=== PATIENT | male | born 2000 | race Caucasian/White ===

== ENCOUNTER 2024-03-07 08:36 | Emergency (ER) | payer OTHER, SELFPAY ==
[2024-03-07 08:38] VITALS: BP 141/82; PULSE 71; RESP 16; TEMP 36.6; O2SAT 99; BMI 23.7
--- NOTE | 2024-03-07 08:55 | CT_ITS ---
STUDY: CT CHEST, ABDOMEN T PELVIS WITH CONTRAST REASON FOR EXAM: Male, 23 years old. Hit side on 2X4 urinating blood RADIATION DOSAGE (If Supplied By Facility): CTDIvol = ( 11.65 ) mGy, DLP = ( 870.34 ) mGycm TECHNIQUE: Transaxial imaging was performed following intravenous administration of IV 100mL [id number]-300. Multiplanar coronal and sagittal images were reformatted. Individualized dose optimization techniques were used for this CT. COMPARISON: No relevant priors. FINDINGS: CHEST The lungs are normal. There is no demonstrated pleural abnormality. Normal heart and pericardium. Normal mediastinum. Normal hilar regions. Normal unenhanced pulmonary arteries. Normal aorta arch and descending thoracic aorta. Normal osseous structures. There is no demonstrated abnormality of the visualized upper abdomen. ABDOMEN The visualized lung bases are unremarkable. The visualized portions of the heart are within normal limits. Normal liver. Normal gallbladder and extrahepatic biliary system. Normal spleen. Normal pancreas. Normal bilateral adrenal glands. Normal right kidney. There is evidence of a small subcapsular left perinephric hematoma. No evidence of renal laceration. Normal visualized stomach. Normal small intestine. Normal colon. The appendix is visualized and appears normal. Normal abdominal aorta. Normal inferior vena cava. Normal retroperitoneum. Normal abdominal wall. Normal osseous structures. PELVIS Normal urinary bladder. Normal visualized small intestine. Normal visualized colon. There is no pelvic fluid. There is no pelvic lymphadenopathy or mass lesion. Normal visualized pelvic arteries. Normal abdominal wall. Normal osseous structures. CT/CT Chest, Abd, Pel w/Contrast IMPRESSION: There is a small left subcapsular renal hematoma. No evidence of renal laceration. Electronically Signed: Kennedy Luna MD at 10:09 EDT ,
--- NOTE | 2024-03-07 09:03 | EDS_ITS ---
HPI History of Present Illness Chief Complaint: Trauma Narrative Narrative: Patient is a 23-year-old male with no known significant past medical history who states that this morning he fell into a hole hitting his left side on 2 x 4. He states that this happened around 7:30 AM and noted that when he went to urinate he urinated and blood which prompted him to come here further evaluation management. Patient states that he did not hit his head he did not pass out did not lose consciousness remembers entire event. He states that he has left rib pain. Rates pain a 7 out of 10. PFSH PFSH Allergy/AdvReac Type Severity Reaction Status Date / Time No Known Allergies Allergy Verified 03/07/24 08:53 Social History Smoking Status: Never smoker ROS ROS ED ROS Narrative Constitutional: Denies fevers, chills, headaches, lightness, dizziness Eyes: Denies change in vision double vision blurry vision Cardiovascular: Denies chest pain or palpitations Respiratory: Denies coughing wheezing shortness of breath Abdomen: Complains of left-sided abdominal pain as noted above denies nausea vomiting diarrhea : Complains of hematuria as noted above denies any painful urination Neurological: Denies numbness, weakness, tingling Musculoskeletal: Complains of left-sided rib pain as noted above Skin: Denies rashes or lesions EXAM Physical Exam Narrative Exam Narrative: General: Patient lying in bed rest comfortably did not appear to be in acute distress Head: Atraumatic, normocephalic Eyes ears, nose, throat: PERRL bilateral, EOMI bilateral, no conjunctival injection noted, no nasal septal hematomas noted bilaterally Neck: Soft, supple, trachea midline, no tenderness palpation midline cervical spine Cardiovascular: Regular rate and rhythm no murmurs gallops rubs noted Respiratory: Clear to auscultation bilaterally no rales rhonchi or wheezes noted Abdomen: Soft, nondistended, tender to palpation in the left lower and upper quadrants of his abdomen no rebound or guarding on exam Musculoskeletal: Patient has tenderness palpation over the left lower rib cage. No tenderness palpation of the midline of thoracolumbar spine no step-offs or deformities noted. All other bony prominences and joints taken through full range of motion no pain elicited Extremities: +5/5 strength noted in the bilateral lower extremities, radial pulses +2/4 in the bilateral per extremities Neurological: Patient following commands knew that he was at [facility] year is 2023 Skin: Warm, dry, tact Const Vital Signs: 03/07/24 08:38 03/07/24 08:47 03/07/24 09:37 Temperature 98 F Temperature Source Oral Pulse Rate 71 80 Respiratory Rate 16 17 Respiratory Effort Normal Respiratory Depth Normal Respiratory Pattern Normal Blood Pressure 141/82 H 127/80 H Blood Pressure Mean 101 95 Pulse Ox 99 98 Oxygen Delivery Method Room Air Room Air Room Air 03/07/24 10:00 03/07/24 11:00 Temperature Temperature Source Pulse Rate 77 77 Respiratory Rate 18 16 Respiratory Effort Respiratory Depth Respiratory Pattern Blood Pressure 124/82 H 131/74 H Blood Pressure Mean 96 93 Pulse Ox 98 96 Oxygen Delivery Method Room Air Room Air MDM MDM MDM Narrative Medical decision making narrative: Patient is a 23-year-old male who presented to the emerged [facility] with chief complaint of hematuria after falling and hitting his left side against a 2 x 4. Patient will have a workup performed here on the differential diagnose includes but not limited to splenic laceration, renal laceration, ureteral laceration, rib fractures, pneumothorax. Once workup is obtained reviewed he will be reevaluated. Patient states that he does not want a thing for pain at this point time. Bedside FAST exam was performed and there was some sediment noted in the bladder. No intra-abdominal free fluid noted. No pericardial effusion noted. Patient CBC reviewed and showed no evidence leukocytosis white blood count normal at 10, hemoglobin stable 14.1, platelet count normal at 241. Patient's INR normal at 1.1, PT normal at 14.4. Patient sodium normal 141, potassium 3.4, creatinine was normal at 0.96. Patient's AST and ALT were 30 and 45 respectively. Patient's urinalysis showed 500 protein with 250 occult blood no evidence of infection noted. Patient's CT chest abdomen pelvis with IV contrast reviewed and showed a small subcapsular renal hematoma in the left side no ev idence of renal laceration. At this point in time do believe the patient will require transfer to a trauma center for further evaluation management of his subcapsular hematoma with hematuria noted. Did discuss case with [facility] Who accept patient for admission Dr. Hernández. Patient be transferred ER to ER. Patient's EKG was reviewed and independently interpreted by myself which showed sinus rhythm with a rate of 60 bpm. Patient was notified of the plan and is agreeable to plan all question concerns were answered at bedside. Lab Data Labs: Laboratory Results - last 24 hr 03/07/24 03/07/24 09:00 09:53 WBC 10.0 RBC 4.68 Hgb 14.1 Hct 40.9 MCV 87.4 MCH 30.1 MCHC 34.5 RDW Std Deviation 38.5 RDW Coeff of Juan 12.1 Plt Count 241 MPV 8.9 Immature Gran % (Auto) 0.800 Neut % (Auto) 79.8 H Lymph % (Auto) 12.0 L Laporte % (Auto) 5.6 Eos % (Auto) 1.5 Baso % (Auto) 0.3 Absolute Neuts (auto) 8.0 H Absolute Lymphs (auto) 1.20 Nucleated RBC % 0 PT 14.4 INR 1.1 APTT 26.7 Sodium 141 Potassium 3.4 L Chloride 107 Carbon Dioxide 28.0 Anion Gap 5 BUN 15 Creatinine 0.96 Estim Creat Clear Calc 118.65 Est GFR (MDRD) Af Amer 123 Est GFR (MDRD) Non-Af 102 BUN/Creatinine Ratio 15.6 Glucose 109 H Calcium 9.2 Total Bilirubin 0.80 Direct Bilirubin 0.19 AST 30 ALT 45 Alkaline Phosphatase 67 Total Protein 7.5 Albumin 4.2 Globulin 3.3 Lipase 25 Urine Color Red Urine Clarity Turbid Urine pH 7.0 Ur Specific Delta 1.015 Urine Protein 500 H Urine Glucose (UA) Normal Urine Ketones Negative Urine Occult Blood 250 H Urine Nitrite Negative Urine Bilirubin Negative Urine Urobilinogen Normal Ur Leukocyte Esterase 25 H Urine RBC 50-100 SEEN Urine WBC 0-5 SEEN Ur Squamous Epith Cells 0 SEEN Urine Bacteria 0 SEEN Urine Mucus 0 SEEN Radiography Diagnostic Testing: Clinical Impression(s) from Imaging Studies Chest/Abdomen/Pelvis CT 03/07/24 08:55 IMPRESSION: There is a small left subcapsular renal hematoma. No evidence of renal laceration. Electronically Signed: Kennedy Luna MD at 10:09 EDT , Discharge Plan Triage Chief Complaint: Trauma ED Provider: Nathan Hemphill Dx/Rx/DC Orders Clinical Impression: Kidney hematoma, Fall Primary Care Provider: Care Physician,No Primary Referrals: Care Physician,No Primary [Primary Care Provider] - Print Language: Armenian Disposition Disposition: DC/Tx to Another Type of HCF
[2024-03-07 09:07] LABS: Basophil# 0.03 X10^3/uL; Basophil% 0.3 % (0-1); Eosinophil# 0.15 X10^3/uL; Eosinophils% 1.5 % (0-5); Hematocrit 40.9 % (40-54); Hemoglobin 14.1 g/dL (13.0-16.5); Mean Corp Hgb Conc 34.5 g/dL (32-36); Mean Corpuscular Hgb 30.1 pg (27.0-32.0); Mean Corpuscular Volume 87.4 fL (80-94); Mean Platelet Vol. 8.9 fl (6.2-12.0); Monocyte# 0.56 X10^3/uL; Monocyte% 5.6 % (0-10); NRBC Flagged by Analyzer 0 % (0-5); Neutrophil # 7.96 X10^3/uL (2.7-7.7); Neutrophil % 79.8 % (47-70); Platelet Count 241 K/mm3 (150-450); RBC Distribution Width CV 12.1 % (11.6-14.6); RBC Distribution Width SD 38.5 fl (35.1-43.9); Red Blood Count 4.68 M/mm3 (4.6-6.2)
--- NOTE | 2024-03-07 09:15 | ED.RN ---
THIS NURSE CALLED THE PT'S BOSS AT HIS SAID EMPLOYMENT. OUR SYSTEM DOES NOT HAVE HIS EMPLOYMENT IN RECORD TO KNOW IF THEY ARE A DRUG TESTING FACILITY. I CALLED CARITO RAGLAND, HIS BOSS, AND HE DENIES THE FACILITY REQUIRING A DRUG TEST FOR THE WORK INJURY.
[2024-03-07 09:16] LABS: International Normalized Ratio 1.1; Partial Thromboplast Time 26.7 Seconds (24.1-36.2); Prothrombin Time (Protime)PT. 14.4 SECONDS (11.7-14.9)
[2024-03-07 09:21] LABS: AST(SGOT) 30 U/L (15-37); Alanine Aminotransfer ALT/SGPT 45 U/L (16-61); Albumin, Serum 4.2 g/dL (3.2-5.0); Alkaline Phosphatase 67 U/L (45-117); Anion Gap 5 (5-15); BUN 15 mg/dL (7-18); BUN/Creat Ratio 15.6 RATIO (10-20); Bilirubin, Direct 0.19 mg/dL (0.00-0.30); Calcium,Total 9.2 mg/dL (8.5-10.1); Chloride 107 mmol/L (98-107); Creatinine, Serum 0.96 mg/dL (0.70-1.30); EST Glomerular Filtration Rate 102 mL/min (>60); Est Glom Filt Rate - Afr Amer 123 mL/min (>60); Estimated Creatinine Clearance 118.65 ml/min; Globulin 3.3 g/dL (2.2-4.2); Glucose 109 mg/dL (74-106); Lipase 25 U/L (13-75); Potassium 3.4 mmol/L (3.5-5.1); Protein, Total 7.5 g/dL (6.4-8.2); Sodium Level 141 mmol/L (136-145)
[2024-03-07 09:37] VITALS: BP 127/80; PULSE 80; RESP 17; O2SAT 98
[2024-03-07 09:58] LABS: Bacteria 0 SEEN /hpf (None Seen); Mucous, Urine 0 SEEN /hpf (<or=2+); Squamous Epithelial Cells - UA 0 SEEN /hpf (0-5)
[2024-03-07 09:59] LABS: Color, Urine Red (Yellow); Glucose, Dipstick Normal (Normal); Ketone-Dipstick Negative (Negative); Leukocyte Esterase-Dipstick 25 /ul (Negative); Nitrite-Dipstick Negative (Negative); Occult Blood-Urine 250 /ul (Negative); Protein-Dipstick 500 mg/dl (Negative); Specific Gravity, Urine 1.015 (1.002-1.030); Urine Bilirubin Dipstick Negative (Negative); Urine Clarity Turbid (Clear); Urine Urobilinogen Normal (Normal)
[2024-03-07 10:00] VITALS: BP 124/82; PULSE 77; RESP 18; O2SAT 98
[2024-03-07 10:33] LABS: Red Blood Cells-Urine 50-100 SEEN /hpf (0-5); White Blood Cells 0-5 SEEN /hpf (0-5)
[2024-03-07 11:00] VITALS: BP 131/74; PULSE 77; RESP 16; O2SAT 96
[2024-03-07] MEDS: Ondansetron 4 MG/2 ML Vial IM (11:31)
[2024-03-07] MEDS: Morphine 4 MG/ML Syringe IV (11:31)
[2024-03-07 12:00] VITALS: BP 126/71; PULSE 74; RESP 14; O2SAT 96
[2024-03-07 13:00] VITALS: BP 125/70; PULSE 75; RESP 16; TEMP 36.4; O2SAT 99
== END 2024-03-07 13:09 | disposition other institution (70) ==
PROVIDERS: Emergency Provider Emergency Medicine; Visit Provider Emergency Medicine
DX: S37.012A Minor contusion of left kidney, initial encounter (principal); R31.9 Hematuria, unspecified; W17.2XXA Fall into hole, initial encounter
CPT/HCPCS: 71260; 74177; 80048; 80076; 81001; 83690; 85025; 85610; 85730; 93005; 96372; 96374; 99285; Q9967; A4216; J2405